=== PATIENT | male | born 1930 | race Caucasian/White ===

== ENCOUNTER → 2017-04-14 | Outpatient (CLI) | payer OTHER ==
[~2017-04-14] MED LIST: ALEN10TA3 PO; AMLO10TA2 PO; ASPI81TA82 PO; ATEN-173 PO; CRS/10 PO; GLUC500C4 PO; LORA10CA2 PO; OMEP20TA PO; WARF-285 PO
== END | disposition home or self-care (01) ==
LOC: C.LABMFLN 11:50
PROVIDERS: ATTEND Urology
DX: C61 Malignant neoplasm of prostate (principal)